=== PATIENT | female | born 1955 | race Caucasian/White ===

== ENCOUNTER 2020-11-21 09:09 | Day surgery (SDC) | payer OTHER, SELFPAY ==
[2020-11-15 16:17] VITALS: BMI 36.6
--- NOTE | 2020-11-20 08:17 | HO.ANESPROP2 ---
HPI - Anesthesia Eval Consult details Narrative: 65yo F for Upper Endoscopy REPLACED BY [facility] Past Medical History Medical History (Updated 11/15/20 @ 16:20 by Neelam Sims) Arthritis COVID-19 vaccine series completed GERD (gastroesophageal reflux disease) Hypertension Low back pain PONV (postoperative nausea and vomiting) Right hip pain Surgical History Surgical History (Updated 11/15/20 @ 16:21 by Neelam Sims) History of History of esophagogastroduodenoscopy (EGD) Hx of cholecystectomy Hx of colonoscopy Hx of tubal ligation Social History Social History (Updated 11/15/20 @ 16:17 by Neelam Sims) Smoking Status: Former smoker Smoking Quit Date: ~1986 Use of substances other than those prescribed or required for medical reasons: No Have you been hit, kicked, punched, or otherwise hurt by someone within the past year? If so, by whom?: No Are you DNR?: No Advance Directives: No Advance Directives Information Provided: No Advance Directives on File: No Meds Allergies Allergy/AdvReac Type Severity Reaction Status Date / Time morphine Allergy Severe Nausea and Verified 11/21/20 09:58 Vomiting Sulfa (Sulfonamide Allergy Severe Rash Verified 11/21/20 09:58 Antibiotics) Home Medications Medication Instructions Recorded Confirmed Last Taken Type atenolol 25 mg PO BEDTIME 11/15/20 11/15/20 Unknown History atenolol 50 tab PO DAILY@0730 11/15/20 11/15/20 Unknown History lisinopril-hydrochlorothiazide 1 tab PO DAILY 11/15/20 11/15/20 Unknown History meloxicam 1 tab PO DAILY 11/15/20 11/15/20 Unknown History omeprazole 1 cap PO BEDTIME 11/15/20 11/15/20 Unknown History Exam Exam Date and Time: November 20, 2020 0817 Height,Weight and Vital Signs: Height 5 ft 5 in Weight 99.79 kg Assessment and Plan Assessment Anesthesia Assessment: Chart Reviewed
[2020-11-21 09:28] VITALS: BP 119/73; PULSE 62; RESP 18; TEMP 36; O2SAT 97
[2020-11-21] MEDS: Lactated Ringers 1,000 ML 100 ML IVCONT (09:59)
--- NOTE | 2020-11-21 10:25 | MHC.SHP ---
Pre-Procedural Eval Section B Chief Complaint: read's Details of Present Illness: barretts Relevant Family History (Specify if Yes): No Relevant Social History: None Present Medications: see Short Stay Collaborative assessment Medical History: No relevant PMH Allergies: Allergies Allergy/AdvReac Type Severity Reaction Status Date / Time morphine Allergy Severe Nausea and Verified 11/21/20 09:58 Vomiting Sulfa (Sulfonamide Allergy Severe Rash Verified 11/21/20 09:58 Antibiotics) Review of Systems Sugical H&P ROS: Negative: Constitution, Cardiovascular, Respiratory, Neurological, Psychiatric, Hem-Onc, Allergic/Immunologic, Gastrointestinal, Genitourinary, Musculoskeletal, Integumentary, Endocrine and Eyes/Ears/Nose/Throat Exam Surgical H&P Exam: Normal: HEENT, Normal: Heart, Normal: Lungs, Normal: Extremities, Normal: Abdomen, Normal: Skin and Normal: Neurological Plan Diagnosis/Plan: Unchanged I have reviewed the history and physical and performed a pertinent physical examination on my patient. No changes have occurred unless specified.
--- NOTE | 2020-11-21 10:47 | PM.OP ---
Brief Operative Note Date of Service: 11/21/20 Pre-op diagnosis: barretts Procedure: egd Surgeon: Ketan Carranza Anesthesia: MAC Was an Light Bulb Tester used for this Procedure?: No Estimated blood loss (mL): 5 Pathology: other (bxs egj) Condition: stable Disposition: PACU
[2020-11-21 10:50] VITALS: BP 101/62; PULSE 65; RESP 16; TEMP 36.5; O2SAT 96
[2020-11-21 11:05] VITALS: BP 110/59; PULSE 61; RESP 17; TEMP 36.5; O2SAT 98
--- NOTE | 2020-11-21 11:37 | HO.POSTANES ---
Post Anesthesia Evaluation Post Anesthesia Evaluation Vital Signs: Vital Signs Temp Pulse Resp BP Pulse Ox 11/21/20 11:05 97.7 F 61 17 110/59 L 98 11/21/20 10:50 97.7 F 65 16 101/62 96 11/21/20 09:28 96.8 F 62 18 119/73 97 Anesthesia: Monitored Mental Status: Awake Pain Control: Satisfactory Nausea/Vomiting: None Hydration: Adequate Anesthesia-Related Issues: No Anes. Related Issues
--- NOTE | 2020-11-21 12:26 | OP_ITS ---
SURGEON: Ketan Carranza MD INDICATIONS: Mcguire's esophagus. PREOPERATIVE DIAGNOSIS: POSTOPERATIVE DIAGNOSIS: PROCEDURE PERFORMED: Upper endoscopy with biopsy. ESTIMATED BLOOD LOSS: COMPLICATIONS: ANESTHESIA: ASSISTANTS: SPECIMENS: MEDICATIONS: Monitored anesthesia care. DESCRIPTION OF PROCEDURE: History and physical performed. The risks and benefits of the procedure were explained to the patient. Informed consent was obtained. The patient was placed in the left lateral decubitus position. The Olympus video gastroscope was introduced into the esophagus, stomach, and duodenum. Examination was performed and the scope was removed. She tolerated the procedure well and was taken to recovery area in stable condition. FINDINGS: Esophagus: The esophagus showed no esophagitis. There was irregularity to the EG junction with no raised lesions or ulcerated areas. Biopsies were obtained from the EG junction. Stomach: Stomach showed multiple benign-appearing gastric polyps, which had been previously biopsied. These were not re-biopsied. Duodenum: The bulb and second portion were normal. IMPRESSION: Mcguire's esophagus. RECOMMENDATIONS: Follow up the biopsy results. MD MICHAEL Marr/MODL / [id number]
== END 2020-11-21 11:43 | disposition home or self-care (01) ==
PROVIDERS: PCP Family Medicine; Visit Provider Internal Medicine Gastroenterology
PROC: 0DJ08ZZ Inspection of Upper Intestinal Tract, Via Natural or Artificial Opening Endoscopic (ICD-10-PCS; CPT 43235; principal; 2020-11-21 10:10)
DX: K22.70 Barrett's esophagus without dysplasia (principal); K21.9 Gastro-esophageal reflux disease without esophagitis; Z80.0 Family history of malignant neoplasm of digestive organs; I10 Essential (primary) hypertension; Z79.899 Other long term (current) drug therapy; Z90.49 Acquired absence of other specified parts of digestive tract; Z87.891 Personal history of nicotine dependence
CPT/HCPCS: 43239; 88305

== ENCOUNTER 2023-10-28 12:20 | Outpatient (REF) | payer MEDICARE, OTHER, SELFPAY ==
[2023-10-28 13:14] LABS: Estimated Average Glucose 117 mg/dL; Hemoglobin A1c % 5.7 % (<6.0)
[2023-10-28 13:19] LABS: Anion Gap 10 (12-20); Blood Urea Nitrogen 31 mg/dL (9-16); Carbon Dioxide 29 mmol/L (22-29); Chloride 104 mmol/L (96-108); Cholesterol 189 mg/dL (<200); Estimated Glomerular Filt Rate 43; Glucose Fasting 105 mg/dL (60-99); HDL Cholesterol 55 mg/dL (>40); LDL Cholesterol Calculated 120 mg/dL (<100); Potassium 4.2 mmol/L (3.3-5.1); Sodium 139 mmol/L (135-145); Triglycerides 70 mg/dL (<150)
[2023-10-28 13:54] LABS: Creatinine Urine 54.18 mg/dL; Microalbumin Urine < 5.0 mg/L
== END 2023-10-28 12:21 | disposition home or self-care (01) ==
LOC: HO.10HDL 12:20
PROVIDERS: Visit Provider Family Medicine
DX: I10 Essential (primary) hypertension (principal); E78.00 Pure hypercholesterolemia, unspecified; R73.9 Hyperglycemia, unspecified
CPT/HCPCS: 36415; 80051; 80061; 82565; 82570; 82947; 83036; 84520

== ENCOUNTER 2024-08-05 12:22 | Outpatient (REF) | payer MEDICARE, OTHER, SELFPAY ==
[2024-08-05 13:30] LABS: Estimated Average Glucose 114 mg/dL; Hemoglobin A1C 146.8877 umol/L; Hemoglobin A1c % 5.6 % (<6.0); Total Hemoglobin (HGBA1C) 3866.4117 umol/L
[2024-08-05 14:11] LABS: Anion Gap 14 (12-20); Blood Urea Nitrogen 33 mg/dL (9-16); Carbon Dioxide 26 mmol/L (22-29); Chloride 103 mmol/L (96-108); Estimated Glomerular Filt Rate 44; Glucose Fasting 110 mg/dL (60-99); Potassium 4.1 mmol/L (3.3-5.1); Sodium 139 mmol/L (135-145)
== END 2024-08-05 12:23 | disposition home or self-care (01) ==
LOC: HO.10HDL 12:22
PROVIDERS: Visit Provider Family Medicine
DX: I10 Essential (primary) hypertension (principal); R73.9 Hyperglycemia, unspecified
CPT/HCPCS: 36415; 80051; 82565; 82947; 83036; 84520

== ENCOUNTER 2024-10-26 13:32 | Outpatient (REF) | payer MEDICARE, OTHER, SELFPAY ==
--- NOTE | ~2024-10-26 | US_ITS ---
EXAMINATION: US EXTRACRANIAL CAROTID DUPLEX, BILATERAL CLINICAL INFORMATION: Hypertension. COMPARISON: October 21, 2013. TECHNIQUE: Real-time ultrasound and Doppler techniques (integrating B-mode 2-D vascular images, Doppler spectral analysis and color-flow Doppler imaging) were utilized to interrogate the extracranial carotid arteries, the vertebral arteries and proximal subclavian arteries bilaterally. The degree of stenosis is determined by criteria similar to NASCET. FINDINGS: Right Side: 1. There is no atherosclerotic plaque seen in the bifurcation/proximal ICA region. 2. The common carotid artery PSV proximally is 110 cm/s and distally 80 cm/s. 3. The proximal internal carotid artery velocities are 53 cm/s systolic and 20 cm/s diastolic. 4. The proximal external carotid artery PSV is 94 cm/s. 5. The vertebral artery shows antegrade flow. 6. The subclavian artery waveforms are triphasic. ICA/CC ratio: 0.48. Left Side: 1. There is no atherosclerotic plaque seen in the bifurcation/proximal ICA region. 2. The common carotid artery PSV proximally is 138 cm/s and distally 97 cm/s. 3. The proximal internal carotid artery velocities are 58 cm/s systolic and 17 cm/s diastolic. 4. The proximal external carotid artery PSV is 86 cm/s. 5. The vertebral artery shows antegrade flow. 6. The subclavian artery waveforms are triphasic. ICA/CC ratio: 0.42. Ancillary findings: There is a 1.5 cm complex septated anechoic and well-defined nodule, right thyroid lobe. US/US carotid duplex BI IMPRESSION: 1. RIGHT: No hemodynamically significant stenosis by ultrasound criteria. 2. LEFT: No hemodynamically significant stenosis by ultrasound criteria. 1.5 cm dominant nodule, right thyroid lobe. Electronically signed by: Rodney Whittaker MD 10/27/2024 10:34 AM EDT
== END 2024-10-26 13:33 | disposition home or self-care (01) ==
LOC: HO.US 13:32
PROVIDERS: PCP Family Medicine; Visit Provider Family Medicine
DX: I10 Essential (primary) hypertension (principal); R09.89 Other specified symptoms and signs involving the circulatory and respiratory systems; E11.9 Type 2 diabetes mellitus without complications
CPT/HCPCS: 93880

== ENCOUNTER → 2024-10-26 13:49 | Outpatient (BNV) | payer MEDICARE, OTHER, SELFPAY | PROVIDERS: PCP Family Medicine; Visit Provider Radiology Diagnostic Radiology | DX: I10 Essential (primary) hypertension (principal); E04.1 Nontoxic single thyroid nodule | CPT/HCPCS: 93880 ==

== ENCOUNTER 2024-12-21 12:08 | Outpatient (REF) | payer MEDICARE, OTHER, SELFPAY ==
[2024-12-21 13:20] LABS: Estimated Average Glucose 111 mg/dL; Hemoglobin A1c % 5.5 % (<6.0)
[2024-12-21 13:33] LABS: Anion Gap 13 (12-20); Blood Urea Nitrogen 22 mg/dL (9-16); Carbon Dioxide 27 mmol/L (22-29); Chloride 105 mmol/L (96-108); Estimated Glomerular Filt Rate 44; Glucose Fasting 88 mg/dL (60-99); Potassium 4.1 mmol/L (3.3-5.1); Sodium 141 mmol/L (135-145)
== END 2024-12-21 12:09 | disposition home or self-care (01) ==
LOC: HO.10HDL 12:08
PROVIDERS: Visit Provider Family Medicine
DX: I10 Essential (primary) hypertension (principal); E11.9 Type 2 diabetes mellitus without complications
CPT/HCPCS: 36415; 80051; 82565; 82947; 83036; 84520

== ENCOUNTER 2025-03-24 11:40 | Outpatient (AMB) | payer MEDICARE, OTHER, SELFPAY ==
--- NOTE | 2025-03-24 11:33 | MHC.PC.OV ---
Vital Signs 03/24/25 11:44 Height 5 ft 5 in Weight 177 lb BMI 29.5 BP 118/68 Blood Pressure Location Rt brachial Position Sitting Respiration 18 Pulse 79 Pulse Source Pulse Oximeter Temp 97 F Temp Source Temporal Artery Scan Pulse Oximetry (%) 98 Oxygen Delivery Method Room Air Intake Visit Reasons: Routine / Dr Roger Willow Machine Tender Required: No Accompanied by: Self / Same As Patient Allergies morphine Allergy (Severe, Verified 03/24/25 11:33) Nausea and Vomiting Sulfa (Sulfonamide Antibiotics) Allergy (Severe, Verified 03/24/25 11:33) Rash Medication List - Last Reconciled 03/24/25 by Ricci Winlker MD atenolol 50 tabs PO DAILY@0730 atenolol 25 mg PO BEDTIME bupropion HCl XL 150 mg PO QAM cholecalciferol (vitamin D3) 25 mcg PO DAILY lisinopril 10 mg PO BEDTIME multivitamin 1 tab PO DAILY omeprazole 1 cap PO BEDTIME semaglutide (Ozempic) mg subcut Tobacco use date assessed: 03/24/25 Fall risk assessment: No Falls in past year Last assessed Fall Risk: 03/24/25 Dental Screening Dental Screen Date: 03/24/25 Did you have a dental visit in the last 12 months?: Yes Did you have a dental problem in the last 6 months where you did not have access to dental care?: No Was dental information given to patient?: Patient has dentist HPI HPI Comments History of Present Illness Details The patient is a 69-year-old female presenting with concerns regarding weight management and a review of her hypertension treatment. The patient has been taking Ozempic for weight loss since October 01, starting at a dose of 0.25 mg and increasing to 0.5 mg in December. Despite consistent use, the patient reports no significant change in weight, and no specific weight loss figures were self-reported. The patient expresses dissatisfaction as her weight management has plateaued. The patient also has a history of elevated blood pressure. Currently, she is managing her essential hypertension with atenolol (50 mg in the morning and 25 mg at night) and lisinopril (10 mg at night). No significant side effects were reported with the current medication regimen, and her blood pressures are said to be well-controlled. Additionally, the patient has a condition of prediabetes, noted at a recent A1c of approximately 6.0. She is actively managing this condition with Ozempic, although her primary motivation behind its use is for weight loss. Reports indicate a stable glucose level, previously recorded at 88, evidencing effective glycemic control. There is significant concern from the patient regarding progression to diabetes, partly due to her family history. Medical History: - Essential Hypertension - Depression - Prediabetes Surgical History: - Cholecystectomy (Gallbladder removal) - Hip replacement (circa 2020) Medications: - Ozempic 0.5 mg for weight loss - Atenolol 50 mg in the morning and 25 mg at night for hypertension - Lisinopril 10 mg at night for hypertension - Bupropion for depression - Omeprazole taken at night Family History: - Grandfather and uncle with history of coronary artery disease - Father had esophageal cancer and heart disease - Brother with a history of diabetes - No family history of cancers apart from esophageal Diagnostic Results: - Labs: Blood glucose level at 88, A1c estimated near 6.0 Social: - Lives with in a stable housing situation - Denies current tobacco or alcohol use; quit smoking 30 years ago - Reports stable mood with some past episodes of crying - No substance abuse - Regular annual mammograms [facility] Medical History (Updated 03/24/25 @ 12:05 by Ricci Winkler MD) Obesity Anxiety and depression COVID-19 vaccine series completed Right hip pain Arthritis Low back pain GERD (gastroesophageal reflux disease) Hypertension PONV (postoperative nausea and vomiting) Surgical History (Updated 03/23/25 @ 16:12 by Noreen Snell) Hx of cholecystectomy Hx of tubal ligation History of Hx of colonoscopy (~05/08/18) History of esophagogastroduodenoscopy (EGD) Social History (Updated 11/15/20 @ 16:17 by Neelam Sims RN) Housing: House Patient Tobacco Use Status: Former Tobacco user e-Cigarette/Vaping Use: Never Used service: No Current occupational status: retired Questionnaire PHQ-9 Over the last 2 weeks, how often have you been bothered by any of the following problems? 1. Little interest or pleasure in doing things: not at all 2. Feeling down, depressed, or hopeless: not at all 3. Trouble falling or staying asleep, or sleeping too much: not at all 4. Feeling tired or having little energy: not at all 5. Poor appetite or overeating: not at all 6. Feeling bad about yourself - or that you are a failure or have let yourself or your family down: not at all 7. Trouble concentrating on things, such as reading the newspaper or watching television: not at all 8. Moving or speaking so slowly that other people could have noticed. Or the opposite - being so fidgety or restless that you have been moving around a lot more than usual: not at all 9. Thoughts that you would be better off or of hurting yourself in some way: not at all Total score: 0 Depression Screening Interpretation: Negative Depression Screening Done: Yes 33904 - PHQ-9 Billing: Yes Source: Developed by Drs. Geovanny Willis, Naa Powell, Paco Garzon and colleagues, with an educational will from [employer]. Thrive Questionnaire Date Thrive assessed: 03/24/25 I am a: Patient What is your living situation today?: I have a steady place to live Within the past 12 months, did the food you bought not last and you didn't have the money to get more?: Never true Within the past 12 months, did you worry whether your food would run out before you got money to buy more?: Never true Do you have trouble paying for medicines?: No Do you have trouble getting transportation to medical appointments?: No Do you have trouble paying your heating and electricity bill?: No Do you have trouble taking care of your child, family member or friend?: No Do you have trouble with day-to-day activities such as bathing, preparing meals, shopping, managing finances, etc.?: No Are you currently unemployed and looking for a job?: No Are you interested in more education?: No THRIVE Score: 0 AUDIT C Alcohol Use Questionnaire (AUDIT-C) 1. How often do you have a drink containing alcohol?: Never 3. How often do you have six or more drinks on one occasion?: Never Total Score: 0 JAMAL-7 AMB Questionnaire JAMAL-7 Date JAMAL - 7 assessed: 03/24/25 Feeling nervous, anxious, or on edge: 0 = Not at all Not being able to stop or control worryin = Not at all Worrying too much about different things: 0 = Not at all Trouble relaxin = Not at all Being so restless that it is hard to sit still: 0 = Not at all Becoming easily annoyed or irritable: 0 = Not at all Feeling afraid as if something awful might happen: 0 = Not at all Total JAMAL-7 score (0-4 normal; 5-9 mild; 10-14 moderate; 15-21 severe): 0 Source: Developed by Drs. Geovanny Willis, Naa Powell, Paco Garzon and colleagues, with an educational will from [employer]. JAMAL-7 Assessment Billing JAMAL-7 Assessment Tool: JAMAL-7 Assessment 76033 Physical exam (Primary Care) Vital Signs: Last Vital Signs Temp 97 F 03/24/25 11:44 Pulse 79 03/24/25 11:44 Resp 18 03/24/25 11:44 BP 118/68 03/24/25 11:44 Pulse Ox 98 03/24/25 11:44 Oxygen Delivery Method Room Air 03/24/25 11:44 BMI result Body Mass Index 29.5 Tobacco/Smoking Status: Tobacco use Status Tobacco use date assessed 03/24/25 03/24/25 11:34 Patient Tobacco Use Status Former Tobacco user 03/24/25 11:50 e-Cigarette/Vaping Use Never Used 03/24/25 11:50 PHQ-9: PHQ-9 Score PHQ-9: Total score 0 03/24/25 11:54 Depression Screening Interpretation: Negative Thrive Assessment: Date of Thrive Assessment Date Thrive assessed 03/24/25 03/24/25 11:54 Coding Level of Care Code New Pt Level 4 (62742) Diagnoses Hypertension, unspecified type I10 Hypertension type: unspecified Gastroesophageal reflux disease without esophagitis K21.9 Esophagitis presence: without esophagitis Anxiety and depression F41.9; F32.A Obesity, unspecified class, unspecified obesity type, unspecified whether serious comorbidity present E66.9 Obesity classification: unspecified obesity classification Obesity type: unspecified obesity type Serious obesity comorbidity presence: unspecified whether serious comorbidity present Additional Codes JAMAL-7 Assessment Billing - JAMAL-7 Assessment Tool: JAMAL-7 Assessment [id number] ([id number]) PHQ-9 - 32654 - PHQ-9 Billing: Yes ([id number]) Assessment & Plan Assessment & Plan (1) Hypertension: Comment: - Continue atenolol 50 mg in the morning and 25 mg at night, lisinopril 10 mg at night. - Monitor blood pressure regularly. Code(s): I10 - Essential (primary) hypertension Category: Medical Qualifiers: Hypertension type: unspecified Qualified Code(s): I10 - Essential (primary) hypertension (2) GERD (gastroesophageal reflux disease): Comment: - Prior EGD Normal in 2020 - Reports relief with omperazole Code(s): K21.9 - Gastro-esophageal reflux disease without esophagitis Category: Medical Qualifiers: Esophagitis presence: without esophagitis Qualified Code(s): K21.9 - Gastro-esophageal reflux disease without esophagitis (3) Anxiety and depression: Comment: - Continue bupropion as currently prescribed. - Patient's mood is stable; no changes to medication needed at this time. Code(s): F41.9 - Anxiety disorder, unspecified; F32.A - Depression, unspecified Category: Medical (4) Obesity: Comment: - Been started on oznempic as of september with significant weight loss. Currently on .5 mg but reports plateau - Will continue on .5 and evaluate at next clinic visit Code(s): E66.9 - Obesity, unspecified Category: Medical Qualifiers: Obesity classification: unspecified obesity classification Obesity type: unspecified obesity type Serious obesity comorbidity presence: unspecified whether serious comorbidity present Qualified Code(s): E66.9 - Obesity, unspecified Plan: Health Maintenance: - Annual mammogram updated - Routine blood work ordered including electrolytes, complete blood count, cholesterol profile, thyroid function tests - Counseling provided on optimal timing for Ozempic usage Patient was informed and verbally consented to the use of an ambient scribe for clinic note documentation during this visit. Plan During today's visit, we discussed the patient's current weight management issues with Ozempic and its role in managing her prediabetes. I explained the potential risks associated with long-term use of Ozempic, including thyroid cancer and pancreatitis. We discussed the importance of maintaining the current dosage to avoid these risks, given her good glycemic control and A1c levels. The need for regular blood pressure and cholesterol monitoring was emphasized given her extensive family history of cardiac disease. We agreed on a follow-up visit in around three months to reassess and adjust any necessary treatments. Orders: Orders Complete Blood Count Auto Diff Today I10 - Essential (primary) hypertension Comprehensive Met. Panel Today I10 - Essential (primary) hypertension Hemoglobin A1c Today I10 - Essential (primary) hypertension HIV Ab/Ag Today I10 - Essential (primary) hypertension Hepatitis A,B,C Profile Today I10 - Essential (primary) hypertension Lipid Panel Today I10 - Essential (primary) hypertension Syphilis Screen Today I10 - Essential (primary) hypertension TSH reflex Free T4 Today I10 - Essential (primary) hypertension Vitamin D 25-OH Total Today I10 - Essential (primary) hypertension Patient Instructions: - Continue current medication regimen as prescribed. - Take Ozempic at the recommended time of day before a meal. - Monitor blood sugar levels regularly. - Schedule follow-up blood tests and return for evaluation in three months. - Maintain a heart-healthy diet and engage in regular physical activity. - Contact the clinic if experiencing any new or concerning symptoms.
[2025-03-24 11:44] VITALS: BP 118/68; PULSE 79; RESP 18; TEMP 36.1; O2SAT 98; BMI 29.5
== END 2025-03-24 12:05 | disposition home or self-care (01) ==
LOC: HO.HMCHD 11:40
PROVIDERS: PCP Family Medicine; Visit Provider Student in an Organized Health Care Education/Training Program
DX: I10 Essential (primary) hypertension (principal); K21.9 Gastro-esophageal reflux disease without esophagitis; F41.9 Anxiety disorder, unspecified; F32.A Depression, unspecified; E66.9 Obesity, unspecified

== ENCOUNTER → 2025-03-24 11:40 | Outpatient (BNVA) | payer MEDICARE, OTHER, SELFPAY | PROVIDERS: PCP Family Medicine; Visit Provider Student in an Organized Health Care Education/Training Program | DX: I10 Essential (primary) hypertension (principal); K21.9 Gastro-esophageal reflux disease without esophagitis; F41.9 Anxiety disorder, unspecified; F32.A Depression, unspecified; E66.9 Obesity, unspecified; Z68.29 Body mass index [BMI] 29.0-29.9, adult; Z79.899 Other long term (current) drug therapy; Z13.31 Encounter for screening for depression; Z13.39 Encounter for screening examination for other mental health and behavioral disorders | CPT/HCPCS: 96127; 99202 ==

== ENCOUNTER 2025-03-28 13:38 | Outpatient (REF) | payer MEDICARE, OTHER, SELFPAY ==
[2025-03-28 14:07] LABS: MANUAL DIFF FLAG NO
[2025-03-28 14:18] LABS: Hematocrit 43.0 % (37.0-47.0); Hemoglobin 14.5 g/dl (12.0-16.0); Imm Gran Abs Auto 0.02 X10*3/uL (0.00-0.03); Imm Gran Pct Auto 0.3 % (0.0-0.4); Lymphocytes Absolute Auto 1.7 X10*3/uL (1.2-4.9); Mean Corpuscular HGB Conc 33.7 g/dl (31.0-35.0); Mean Corpuscular Hemoglobin 29.5 pg (27.0-33.0); Mean Corpuscular Volume 87.6 fL (80.0-98.0); NRBC Abs Auto 0.000 X10*3/uL (0.0-0.012); NRBC Pct Auto 0.0 /100WBC (0.0-0.2); Platelet Count 173 X10*3/uL (160-400); Red Blood Count 4.91 X10*6/uL (4.20-5.50); White Blood Count 7.5 X10*3/uL (4.8-10.8)
[2025-03-28 14:23] LABS: Hemoglobin A1C 144.4830 umol/L; Total Hemoglobin (HGBA1C) 3875.5865 umol/L
[2025-03-28 14:57] LABS: Alanine Aminotransferase 14 U/L (0-31); Albumin Level 4.4 g/dL (3.5-5.0); Alkaline Phosphatase 82 U/L (39-117); Anion Gap 9 (12-20); Aspartate Amino Transferase 27 U/L (5-31); Blood Urea Nitrogen 23 mg/dL (9-16); Calcium 9.3 mg/dL (8.4-10.2); Carbon Dioxide 30 mmol/L (22-29); Chloride 105 mmol/L (96-108); Cholesterol 187 mg/dL (<200); Estimated Glomerular Filt Rate 41; HDL Cholesterol 52 mg/dL (>40); Potassium 4.4 mmol/L (3.3-5.1); Sodium 140 mmol/L (135-145); Total Protein 6.9 g/dL (6.5-8.0); Triglycerides 66 mg/dL (<150)
[2025-03-29 13:09] LABS: Syphilis Screen Nonreactive (Nonreactive)
[2025-03-29 14:09] LABS: HBS Num1 0.54 mIU/mL (0-7.99); HBc Num1 0.05 S/CO (0.00-0.79); HBsAGNum1 0.39 S/CO (0.00-0.99); HIV Num 1 0.05 S/CO (0.00-0.99); Hepatitis A Antibody IgM 0.11 Index (0-0.79); Hepatitis B Surface Antigen Negative (Negative); ~HepC Num1 0.05 S/CO (0.00-0.79); ~Hepatitis A Antibody IgM Nonreactive (Nonreactive); ~Hepatitis B Surface Antibody NONREACTIVE (Nonreactive); ~Hepatitis C Antibody Nonreactive (Nonreactive)
== END 2025-03-28 13:39 | disposition home or self-care (01) ==
LOC: HO.LAB 13:38
PROVIDERS: PCP Student in an Organized Health Care Education/Training Program; Visit Provider Student in an Organized Health Care Education/Training Program
DX: Z13.1 Encounter for screening for diabetes mellitus (principal); Z11.59 Encounter for screening for other viral diseases; I10 Essential (primary) hypertension; Z72.89 Other problems related to lifestyle
CPT/HCPCS: 36415; 80053; 80061; 82306; 83036; 84443; 85025; 86704; 86706; 86709; 86780; 86803; 87340; 87389

== ENCOUNTER 2025-05-10 14:35 | Outpatient (AMB) | payer MEDICARE, OTHER, SELFPAY ==
--- NOTE | 2025-05-10 14:46 | A.OFFPC_ITS ---
Vital Signs 05/10/25 14:53 Height 5 ft 5 in Weight 174 lb 4 oz BMI 29.0 BP 126/60 Blood Pressure Location Lt brachial Position Sitting Respiration 16 Pulse 67 Pulse Source Pulse Oximeter Temp 97.8 F Temp Source Oral Pulse Oximetry (%) 100 Oxygen Delivery Method Room Air Intake Visit Reasons: SIXTO from Dr. Roger Intake Note: patient here for SIXTO from Dr. Roger Manager Reimbursement Required: No Is last menstrual period known: No Post menopausal: No Patient : No Allergies morphine Allergy (Severe, Verified 05/10/25 14:50) Nausea and Vomiting Sulfa (Sulfonamide Antibiotics) Allergy (Severe, Verified 05/10/25 14:50) Rash Tobacco use date assessed: 05/10/25 Fall risk assessment: No Falls in past year Last assessed Fall Risk: 05/10/25 Dental Screening Dental Screen Date: 05/10/25 Did you have a dental visit in the last 12 months?: Yes Did you have a dental problem in the last 6 months where you did not have access to dental care?: No Was dental information given to patient?: Patient has dentist HPI HPI Comments History of Present Illness Details The patient is a 69-year-old female with a past medical history of hypertension, obesity, prediabetes, CKD stage 3 presenting to [facility] care. Transfer from Dr Roger, then 10 CV: On atenolol (50 mg in the morning and 25 mg at night) and lisinopril (10 mg at night). BP is well controlled. Denies chest pain, exertional dyspea Prediabetes: 5.6% from 6.0%. Obesity: The patient has been taking Ozempic for weight loss since October 01, starting at a dose of 0.25 mg and increasing to 0.5 mg in December. Her weight loss has stalled on current dosing MSK: s/p Hip replacement (approx 2020) BH: Stable on bupropion for depression GI: Omeprazole taken at night. Follows with [facility]. Colonoscopy 05/2018-normal Mammogram 08/2024 ROS CONSTITUTIONAL: Denies weight loss, fever and chills. HEENT: Denies changes in vision and hearing. RESPIRATORY: Denies SOB and cough. CV: Denies palpitations and CP GI: Denies abdominal pain, nausea, vomiting and diarrhea. : Denies dysuria and urinary frequency. MSK: Denies new myalgia and joint pain. SKIN: Denies rash and pruritus. NEUROLOGICAL: Denies headache PSYCHIATRIC: Denies recent changes in mood. PHYSICAL EXAM: GENERAL: Alert and oriented x 3. NAD EYES: EOMI. Anicteric. HENT: Moist mucous membranes. No scleral icterus. No cervical lymphadenopathy. LUNGS: Clear to auscultation bilaterally. CARDIOVASCULAR: Regular rate and rhythm. No murmur. No JVD. ABDOMEN: Soft, non-tender +bs EXTREMITIES: No edema. Non-tender. SKIN: No rashes or lesions. Warm. NEUROLOGIC: No focal neurological deficits. CN II-XII grossly intact PSYCHIATRIC: Cooperative. Appropriate mood and affect [facility] Medical History Obesity Anxiety and depression COVID-19 vaccine series completed Right hip pain Arthritis Low back pain GERD (gastroesophageal reflux disease) Hypertension PONV (postoperative nausea and vomiting) Surgical History Hx of cholecystectomy Hx of tubal ligation History of Hx of colonoscopy (~05/08/18) History of esophagogastroduodenoscopy (EGD) Social History Housing: House Patient Tobacco Use Status: Former Tobacco user e-Cigarette/Vaping Use: Never Used service: No Current occupational status: retired Current occupational exposures/hazards: No Cognitive needs: No Hearing needs: No Vision needs: Yes Questionnaire PHQ-9 Over the last 2 weeks, how often have you been bothered by any of the following problems? 1. Little interest or pleasure in doing things: not at all 2. Feeling down, depressed, or hopeless: not at all 3. Trouble falling or staying asleep, or sleeping too much: not at all 4. Feeling tired or having little energy: not at all 5. Poor appetite or overeating: not at all 6. Feeling bad about yourself - or that you are a failure or have let yourself or your family down: not at all 7. Trouble concentrating on things, such as reading the newspaper or watching television: not at all 8. Moving or speaking so slowly that other people could have noticed. Or the opposite - being so fidgety or restless that you have been moving around a lot more than usual: not at all 9. Thoughts that you would be better off or of hurting yourself in some way: not at all Total score: 0 Depression Screening Interpretation: Negative Depression Screening Done: Yes 18786 - PHQ-9 Billing: Yes Source: Developed by Drs. Geovanny Willis, Naa Powell, Paco Garzon and colleagues, with an educational will from [email or web address]. Thrive Questionnaire Date Thrive assessed: 05/03/25 I am a: Patient What is your living situation today?: I have a steady place to live Within the past 12 months, did the food you bought not last and you didn't have the money to get more?: Never true Within the past 12 months, did you worry whether your food would run out before you got money to buy more?: Never true Do you have trouble paying for medicines?: No Do you have trouble getting transportation to medical appointments?: No Do you have trouble paying your heating and electricity bill?: No Do you have trouble taking care of your child, family member or friend?: No Do you have trouble with day-to-day activities such as bathing, preparing meals, shopping, managing finances, etc.?: No Are you currently unemployed and looking for a job?: No Are you interested in more education?: No Please select the resources that you would like help with: None Currently or been in a relationship where the following occur: No concerns reported THRIVE Score: 0 AUDIT C Alcohol Use Questionnaire (AUDIT-C) 1. How often do you have a drink containing alcohol?: Never 3. How often do you have six or more drinks on one occasion?: Never Total Score: 0 JAMAL-7 AMB Questionnaire JAMAL-7 Date JAMAL - 7 assessed: 05/10/25 Feeling nervous, anxious, or on edge: 0 = Not at all Not being able to stop or control worryin = Not at all Worrying too much about different things: 0 = Not at all Trouble relaxin = Not at all Being so restless that it is hard to sit still: 0 = Not at all Becoming easily annoyed or irritable: 0 = Not at all Feeling afraid as if something awful might happen: 0 = Not at all Total JAMAL-7 score (0-4 normal; 5-9 mild; 10-14 moderate; 15-21 severe): 0 Source: Developed by Drs. Geovanny Willis, Naa Powell, Paco Garzon and colleagues, with an educational will from [email or web address]. Physical exam (Primary Care) Vital Signs: Last Vital Signs Temp 97.8 F 05/10/25 14:53 Pulse 67 05/10/25 14:53 Resp 16 05/10/25 14:53 BP 126/60 05/10/25 14:53 Pulse Ox 100 05/10/25 14:53 Oxygen Delivery Method Room Air 05/10/25 14:53 BMI result Body Mass Index 29.0 Tobacco/Smoking Status: Tobacco use Status Tobacco use date assessed 05/10/25 05/10/25 14:52 Patient Tobacco Use Status Former Tobacco user 05/10/25 14:47 e-Cigarette/Vaping Use Never Used 05/10/25 14:47 PHQ-9: PHQ-9 Score PHQ-9: Total score 0 05/10/25 15:08 Depression Screening Interpretation: Negative Thrive Assessment: Date of Thrive Assessment Date Thrive assessed 05/03/25 05/10/25 14:47 Currently or been in a relationship where the following occur: No concerns reported Coding Level of Care Code Est Pt Level 4 (40176) Complex EM visit Add On G2211 Diagnoses Prediabetes R73.03 Hypertension, unspecified type I10 Hypertension type: unspecified Anxiety and depression F41.9; F32.A Additional Codes PHQ-9 - 86121 - PHQ-9 Billing: Yes ([id number]) Assessment & Plan Assessment & Plan (1) Prediabetes: Code(s): R73.03 - Prediabetes Category: Medical (2) Hypertension: Code(s): I10 - Essential (primary) hypertension Category: Medical Qualifiers: Hypertension type: unspecified Qualified Code(s): I10 - Essential (primary) hypertension (3) Anxiety and depression: Code(s): F41.9 - Anxiety disorder, unspecified; F32.A - Depression, unspecified Category: Medical Plan 69 year old female presenting to [facility] Past medical, surgical, social reviewed Prediabetes-improved A1C with weight loss. Increase ozempic to 1mg Blood pressure is well controlled. Did discuss CKD stage 3. Will monitor as long as stable Preventive measures up to date Follow up in six months or sooner as needed Orders: Orders MM tomosynthesis screening BI 05/10/25 Z12.31 - Encounter for screening mammogram for malignant neoplasm of breast Complete Blood Count Auto Diff 5 Months E66.9 - Obesity, unspecified, F32.A - Depression, unspecified, F41.9 - Anxiety disorder, unspecified, I10 - Essential (primary) hypertension, K21.9 - Gastro-esophageal reflux disease without esophagitis, R73.03 - Prediabetes Lipid Panel 5 Months E66.9 - Obesity, unspecified, F32.A - Depression, unspecified, F41.9 - Anxiety disorder, unspecified, I10 - Essential (primary) hypertension, K21.9 - Gastro-esophageal reflux disease without esophagitis, R73.03 - Prediabetes TSH reflex Free T4 5 Months E66.9 - Obesity, unspecified, F32.A - Depression, unspecified, F41.9 - Anxiety disorder, unspecified, I10 - Essential (primary) hypertension, K21.9 - Gastro-esophageal reflux disease without esophagitis, R73.03 - Prediabetes Comprehensive Met. Panel 5 Months E66.9 - Obesity, unspecified, F32.A - Depression, unspecified, F41.9 - Anxiety disorder, unspecified, I10 - Essential (primary) hypertension, K21.9 - Gastro-esophageal reflux disease without esophagitis, R73.03 - Prediabetes Hemoglobin A1c 5 Months E66.9 - Obesity, unspecified, F32.A - Depression, unsp ecified, F41.9 - Anxiety disorder, unspecified, I10 - Essential (primary) hypertension, K21.9 - Gastro-esophageal reflux disease without esophagitis, R73.03 - Prediabetes Medications: New Ozempic (semaglutide) 1 mg (0.75 mL) subcut QWEEK 3 mL 0RF NS E66.9 - Obesity, unspecified, I10 - Essential (primary) hypertension, R73.03 - Prediabetes Ozempic (semaglutide) 1 mg (0.75 mL) subcut QWEEK 9 mL 3RF NS E66.9 - Obesity, unspecified, I10 - Essential (primary) hypertension, R73.03 - Prediabetes
[2025-05-10 14:53] VITALS: BP 126/60; PULSE 67; RESP 16; TEMP 36.6; O2SAT 100; BMI 29.0
--- OUTSIDE RECORDS SUMMARY | 2025-05-10 17:38 | XMS_ITS | Patient Health Record ---
Author Organization [facility] Address [address] [place] [id number] Care Team Providers Care Security Management Specialist Name Role Phone Kana (RETIRED) Jose Alfredo CABRALES Primary Care Provider Unavailable Ketan Carranza Jr Unavailable Allergies Allergen (clinical drug ingredient) Drug/Non Drug Allergy documented on EMR Reaction Allergy Type Onset Date Status Sulfa Unknown Drug Allergy Active morphine Morphine Sulfate Unknown Drug Allergy Active Reason For Referral No Information Medications Medication SIG (Take, Route, Frequency, Duration) Notes Start Date End Date Status Carisoprodol 350 MG 1 tablet as needed Orally qd prn Active Meloxicam 15 MG 1 tablet Orally Once a day; Duration: 30 day(s) Active Zinc 50 MG 1 tablet Orally Once a day; Duration: 30 day(s) Active Vitamin D3 Ultra Potency 1.25 MG (69805 UT) 1 tablet Orally; Duration: 30 day(s) Active Vitamin C 1000 MG 1 tablet Orally Once a day; Duration: 30 day(s) Active Multivitamin Adults - as directed Orally Active Lisinopril-hydroCHLOROthiaz kathia 10-12.5 MG 1 tablet Orally Once a day Unknown Multi Vitamin/Minerals - as directed Ora lly once a day Unknown Omeprazole 20 MG 1 capsule 30 minutes before morning meal Oral qhs Unknown dilTIAZem HCl ER Beads 120 MG TAKE 1 CAPSULE DAILY Oral; Duration: 10 Unknown dilTIAZem HCl ER Coated Beads 120 MG TK 1 C PO QD Oral; Duration: 30 Active atenolol 50 mg 1 tab Oral once in a m 1/2 tab in pm Unknown Immunizations Vaccine Route Administration Date Status Comme nts Influenza Unknown 04/15/2018 Administered Influenza Unknown 04/06/2019 Administered Social History Tobacco Use: Social History Observation Description Date Details (start date - stop date) Former Smoker NA - NA Tobacco Use/Smoking Question Answer Notes Patient is a former smoker When did you stop smoking? How long has it been since you last smoked? > 10 years Alcohol Screen Question Answer Notes Did you have a drink containing alcohol in the p ast year? No Points 0 Interpretation Negative Section Notes: former smoker over 30 years ago former smoker over 30 years ago former smoker over 30 years ago Problems Problem Type SNOMED Code ICD Code Onset Dates Problem Status W/U Status Risk Notes Problem Colon cancer screening (495408451) Colon cancer screening (Z12.11) Active confirmed Problem Gastroesophageal reflux disease without esophagitis ([id number]) Gastroesophageal reflux disease without esophagitis (K21.9) Active confirmed Problem Abnormal feces ([id number]) Abnormal findings in stool (R19.5) Active confirmed Problem Mcguire's esophagus ([id number]) 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 [address] [place] [address] [id number] GONZALO REN Self - patient is the insured Medical (General) History Medical History History ICD Code hypertension colonoscopy 05/08/18 followup due 05/2028 Surgical History Surgery Date(Month/Year) section 1983 cholecystectomy 1992 tubal ligation 1985
== END 2025-05-10 15:43 | disposition home or self-care (01) ==
LOC: HO.HMCFM 14:36
PROVIDERS: PCP Family Medicine; Visit Provider Internal Medicine
DX: R73.03 Prediabetes (principal); I10 Essential (primary) hypertension; F41.9 Anxiety disorder, unspecified; F32.A Depression, unspecified

== ENCOUNTER → 2025-05-10 14:35 | Outpatient (BNVA) | payer MEDICARE, OTHER, SELFPAY | PROVIDERS: PCP Family Medicine; Visit Provider Internal Medicine | DX: R73.03 Prediabetes (principal); I12.9 Hypertensive chronic kidney disease with stage 1 through stage 4 chronic kidney disease, or unspecified chronic kidney disease; N18.30 Chronic kidney disease, stage 3 unspecified; F41.9 Anxiety disorder, unspecified; F32.A Depression, unspecified; E66.9 Obesity, unspecified; Z68.29 Body mass index [BMI] 29.0-29.9, adult; Z79.899 Other long term (current) drug therapy; Z13.31 Encounter for screening for depression; Z13.39 Encounter for screening examination for other mental health and behavioral disorders | CPT/HCPCS: 96127; 99212 ==